=== PATIENT | male | born 1995 | race African-American/Black ===

== ENCOUNTER 2017-02-24 17:04 | Emergency (ER) | payer OTHER | END 2017-02-24 17:43 | disposition home or self-care (01) | LOC: NAV ERS 17:04 | DX: Z77.21 Contact with and (suspected) exposure to potentially hazardous body fluids (principal); J45.909 Unspecified asthma, uncomplicated; Z79.899 Other long term (current) drug therapy | CPT/HCPCS: 99001; 99283 ==

== ENCOUNTER 2017-03-14 11:28 | Outpatient (CLI) | payer OTHER ==
[2017-03-14 18:10] LABS: HBSAB Concentration 0.26 mIU/mL; HIV (1/2) Antibody/Antigen Non-Reactive (NonReactive); HIV 1/2 INDEX 0.13 S/CO (<1.00); Hep B Surf AB Non-Reactive (NonReactive); Hep C IgG Ab Non-Reactive (NonReactive); Hep C Index 0.15 S/CO (0-0.79)
== END 2017-03-14 11:29 | disposition home or self-care (01) ==
LOC: NAV LAB 11:28
DX: Z77.21 Contact with and (suspected) exposure to potentially hazardous body fluids (principal)
CPT/HCPCS: 36415; 86706; 86803; 87389